=== PATIENT | male | born 1955 ===

== ENCOUNTER 2020-06-28 14:05 | Outpatient (REF) | payer MEDICARE, SELFPAY | END 2020-06-28 14:06 | disposition home or self-care (01) | LOC: HO.LNP 14:05 | PROVIDERS: Visit Provider Physician Assistant | DX: R30.0 Dysuria (principal) | CPT/HCPCS: 87086; 87088; 87186 ==

== ENCOUNTER 2020-07-24 13:59 | Outpatient (REF) | payer MEDICARE, SELFPAY | END 2020-07-24 14:00 | disposition home or self-care (01) | LOC: HO.LNP 13:59 | PROVIDERS: Visit Provider Family Medicine | DX: N39.0 Urinary tract infection, site not specified (principal) | CPT/HCPCS: 87086; 87088; 87186 ==